=== PATIENT | male | born 1975 | race Caucasian/White ===

== ENCOUNTER 2016-12-07 12:51 | Emergency (ER) | payer OTHER ==
[2016-12-07] MEDS ORDERED: diphenhydrAMINE HCl 50 MG/ML 1 ML VIAL ONE (13:01)
[2016-12-07] MEDS ORDERED: Adacel (T-DAP) 0.5 ML VIAL ONE (13:01)
[2016-12-07 13:22] LABS: #Basophils 0.1 thou/uL (0.0-0.2); #Eosinphils 0.1 thou/uL (0.0-0.7); #Lymphocytes 0.8 thou/uL (1.20-3.40); #Monocytes 0.3 thou/uL (0.11-0.59); #Neutrophils 5.7 thou/uL (1.40-6.50); %Basophils 1.2 % (0.0-1.0); %Eosinophils 1.5 % (0.0-10.0); %Lymphocytes 11.4 % (21.0-51.0); %Monocytes 3.8 % (0.0-10.0); %Neutrophils 82.2 % (42.0-75.0); Hemoglobin 13.6 g/dL (14.0-18.0); Mean Corpuscular HGB CONC 36.2 g/dL (32.0-36.0); Mean Corpuscular Hemoglobin 33.3 pg (27.0-31.0); Mean Corpuscular Volume 92.1 fl (80.0-94.0); Mean Platelet Volume 7.2 fL (7.4-10.4); Platelet Count 181 thou/uL (130-400); RBC Distribution Width 12.3 % (11.5-14.5); Red Blood Cell (RBC) Count 4.09 mill/uL (4.70-6.10); White Blood Cell (WBC) Count 6.9 thou/uL (4.8-10.8)
[2016-12-07 13:25] LABS: PTT 28.2 SEC (22.9-36.1); Prothrombin Time 13.5 SEC (12.0-14.7)
[2016-12-07 13:27] LABS: Bilirubin Negative (Negative); Blood, Urine Small (Negative); Clarity Clear (Clear); Glucose, Urine (Dipstick) Negative (Negative); Leukocyte Negative (Negative); Nitrite Negative (Negative); Protein, Urine (Dipstick) 30 mg/dL (Neg-Trace); Urobilinogen 0.2 mg/dL (0.2-1.0)
[2016-12-07 13:35] LABS: ALT (SGPT) 105 U/L (8-55); AST (SGOT) 83 U/L (5-34); Albumin 4.2 g/dL (3.5-5.0); Alkaline Phosphatase 103 U/L (40-150); Anion Gap 17 mmol/L (10-20); BUN (Urea Nitrogen) 38 mg/dL (8.9-20.6); Bilirubin, Total 0.9 mg/dL (0.2-1.2); Calc. Creatinine Clearance 0 mL/min (70-130); Calcium 9.2 mg/dL (7.8-10.44); Carbon Dioxide 15 mmol/L (22-29); Chloride 110 mmol/L (98-107); Estimated GFR-MDRD 17; Globulin 3.5 g/dL (2.4-3.5); Glucose 102 mg/dL (70-105); Potassium 4.6 mmol/L (3.5-5.1); Protein, Total 7.7 g/dL (6.0-8.3); Sodium 137 mmol/L (136-145)
[2016-12-07 13:38] LABS: Bacteria/HPF Rare-Few HPF (None Seen); RBC/HPF 0-3 HPF (0-3); Squamous Epithelial 0-3 HPF (0-3); WBC/HPF 0-3 HPF (0-3)
[2016-12-07] MEDS ORDERED: HYDROcodone/Acetaminophen 10/325 mg Tablet ONE (14:12)
--- NOTE | 2016-12-07 22:38 | RAD ---
PORTABLE CHEST 12/07/2016 An AP portable film at 1304 hours is compared with a 07/14/2016 study. The heart is normal in size t chidi. The lungs show no acute infiltrate, effusion, or pneumothorax. The bony structures appear in tact. The trachea is midline. The mediastinum shows no widening or shift. IMPRESSION: No acute thoracic findings. POS: HOME
--- NOTE | 2016-12-07 22:42 | RAD ---
LEFT ANKLE THREE VIEWS 12/07/2016 Soft tissue swelling is prominent laterally. An initial look revealed no major fracture, however, o n the oblique view only, there seems to be a small sliver of bone associated with the anterior non-a rticular portion of the talus. I cannot confirm it on the lateral view. If the scaffolding fell on the area around the anterior ankle, this would be suspicious for a small acute avulsion. The ankle mortise appears intact. IMPRESSION: 1. Substantial soft tissue swelling. 2. Question of small talar avulsion anteriorly. Code T. POS: HOME
--- NOTE | 2016-12-07 22:46 | RAD ---
LEFT ELBOW FOUR VIEWS 12/07/2016 No acute fracture or joint effusion was appreciated. There is a large amount of soft tissue swellin g over the olecranon. IMPRESSION: Soft tissue swelling. POS: HOME
== END 2016-12-07 14:39 | disposition home or self-care (01) ==
LOC: BURERS 12:51
DX: S92.155A Nondisplaced avulsion fracture (chip fracture) of left talus, initial encounter for closed fracture (principal); S50.02XA Contusion of left elbow, initial encounter; I12.0 Hypertensive chronic kidney disease with stage 5 chronic kidney disease or end stage renal disease; N17.9 Acute kidney failure, unspecified; N18.5 Chronic kidney disease, stage 5; I21.4 Non-ST elevation (NSTEMI) myocardial infarction; F17.210 Nicotine dependence, cigarettes, uncomplicated; M70.22 Olecranon bursitis, left elbow; Z91.14 Patient's other noncompliance with medication regimen; Z79.899 Other long term (current) drug therapy; W11.XXXA Fall on and from ladder, initial encounter
CPT/HCPCS: 28430; 71010; 80053; 81003; 81015; 85025; 85610; 85730; 90471; 90715; 94760; 96361; 96374; 96375; 96376; J1200; J2270